=== PATIENT | female | born 1940 | race Caucasian/White ===

== ENCOUNTER → 2016-06-28 12:03 | Outpatient (CLI) | payer MEDICARE, OTHER ==
[2014-11-05 08:08] VITALS: BMI 23.5
[~2016-06-28 12:03] MED LIST: CELEXA20 MG PO; CRESTOR5 MG PO; DESYREL50 MG PO; FLUTICASONE PRO16 GM NASAL; HYDROCODONE-APA1 TA3 PO; HYDROCODONE-APA1 TAB PO; LIPITOR20 MG PO; LOPRESSOR50 MG PO; MIRAPEX0.25 MG PO; MOVANTIK PO; PEPCID20 MG PO; PLAVIX75 MG PO; SYMBICORT 16010.2 GM; SYMBICORT 16010.2 GM INH; SYNTHROID75 MCG PO; ULTRAM50 MG PO; XANAX1 MG PO
== END | disposition home or self-care (01) ==
LOC: D.RT 05-06 11:00 → D.LAB 05-06 12:00 → D.RAD 05-06 13:00 → D.RT 12:03
DX: J44.9 Chronic obstructive pulmonary disease, unspecified (principal)

== ENCOUNTER → 2016-10-21 14:58 | Outpatient (CLI) | payer MEDICARE, OTHER ==
[2014-11-05 08:08] VITALS: BMI 23.5
== END | disposition home or self-care (01) ==
LOC: D.US 14:30
DX: I65.23 Occlusion and stenosis of bilateral carotid arteries (principal)

== ENCOUNTER 2016-11-25 07:39 | Inpatient (IN) | payer MEDICARE, OTHER ==
[2016-11-25] VITALS (16 sets, daily range): BP systolic 101–161; BP diastolic 50–80; BMI 22.3
--- NOTE | ~2016-11-25 | HEMODYNAMI ---
PATIENT:PHANI TOLEDO MEDICAL RECORD: [id number] : 44 [id number] ADMISSION DATE: 11/25/16 Generatedon:11/25/201612:58 Patient name: PHANI TOLEDO Patient #: [id number] SSN: : Date of study: 11/25/2016 Page: Of Hemodynamic Procedure Report Patient Data Patient Demographics Procedure consent was obtained First Name: PHANI Gender: Female Last Name: TRE : 1940 [facility] Initial: CHACHA Age: 76 year(s) Patient #: [id number] Race: Unknown Additional ID: [id number] Contact details [address]: [address] [place] [address] State: [place] City: [place] Zip code: [address] Past Medical History Allergies Allergen Reaction Date Comments Reported Codeine 11/25/2016 Penicillins 11/25/2016 Admission Admission Data Admission Date: 11/25/2016 Admission Time: 7:39 Room #: [facility] Weight (lbs.): 130 Weight (kg.): 58.97 Procedure Procedure Types Cath Procedure Peripheral Cath Diagnostic Procedure Cath Peripheral Procedure Description Procedure Date Procedure Date: 11/25/2016 Procedure Start Time: 10:53 Procedure Staff Name Function Mechelle Hinton RT Skating Rink Ice Maker Mechelle Hinton RT Monitor Miguel Ángel Warner RT Scrub Dain Caballero MD Performing Physician Schuyler Minor MD Performing Physician Leandra Weaver RN Nurse Procedure Data Cath Procedure Fluoroscopy Diagnostic fluoroscopy Total fluoroscopy Time: time: 29.9 min 29.9 min Diagnostic fluoroscopy Total fluoroscopy dose: 411 dose: 411 mGy mGy Contrast Material Contrast Material Type Amount (ml) Isovue 300 155 Entry Location Entry Primary Successful Side Size Upsize Upsize Entry Closure Succes sful Closure Location (Fr) 1 (Fr) 2 (Fr) Remarks Device Remarks Femoral Right 5 Fr artery Diagnostic catheters Device Type Used For End Catheter Placement Merit Impress Tejeda 5Fr 125CM catheter Merit ULTRA BOLUS FLUSH 5Fr 90CM catheter Cook HN5 5F/100CM catheter Procedure Medications Medication Administration Route Dosage Versed I.V. 0.5 mg Fentanyl I.V. 25 mcg Versed I.V. 0.5 mg Fentanyl I.V. 25 mcg Heparin Bolus 2000 Heparin Bolus 1000 Versed I.V. 0.5 mg Fentanyl I.V. 25 mcg Heparin Flush Bag added to field 4 (1000units/500ml NS) Lidocaine 1% added to field 20 Oxygen NC 4 l/min Hemodynamics Rest Pre Cath Intra NCS Post Cath Vital Signs Time Heart Resp SPO2 etCO2 NIBP (mmHg) Rhythm Pain Sedation Rate (ipm) (%) (mmHg) Status Level (bpm) 10:37:56 65 26 0 129/86(104) NSR 0 (11) 10(A) , No pain 10:42:02 67 15 61 0 111/88(103) NSR 0 (11) 10(A) , No pain 10:45:59 69 6 89 34 125/90(107) NSR 0 (11) 10(A) , No pain 10:49:59 70 23 12.8 143/96(120) NSR 0 (11) 10(A) , No pain 10:54:06 67 24 27.9 129/89(109) NSR 0 (11) 10(A) , No pain 10:58:14 64 22 100 1.5 125/76(108) NSR 0 (11) 10(A) , No pain 11:02:20 66 17 88 30.2 108/79(88) NSR 0 (11) 10(A) , No pain 11:06:18 65 10 97 30.9 106/80(99) NSR 0 (11) 10(A) , No pain 11:10:17 63 10 94 32.4 110/74(85) NSR 0 (11) 10(A) , No pain 11:14:19 65 10 96 34 108/78(93) NSR 0 (11) 10(A) , No pain 11:18:19 67 10 95 19.6 107/80(93) NSR 0 (11) 10(A) , No pain 11:22:20 64 12 95 0 108/72(91) NSR 0 (11) 10(A) , No pain 11:26:18 65 16 93 11.3 114/81(95) NSR 0 (11) 10(A) , No pain 11:30:22 65 16 93 34 105/73(87) NSR 0 (11) 10(A) , No pain 11:34:21 66 15 96 15.8 107/75(90) NSR 0 (11) 10(A) , No pain 11:38:21 65 13 98 21.1 114/78(102) NSR 0 (11) 10(A) , No pain 11:42:23 68 17 96 30.2 114/77(90) NSR 0 (11) 10(A) , No pain 11:46:26 65 18 96 12.8 109/73(94) NSR 0 (11) 10(A) , No pain 11:50:26 65 15 98 36.2 109/78(96) NSR 0 (11) 10(A) , No pain 11:54:30 61 14 100 29.4 115/70(86) NSR 0 (11) 10(A) , No pain 11:58:33 64 12 98 0 124/72(96) NSR 0 (11) 10(A) , No pain 12:02:43 60 12 88 29.4 100/68(84) NSR 0 (11) 10(A) , No pain 12:06:43 61 14 95 31.7 101/69(84) NSR 0 (11) 10(A) , No pain 12:10:39 63 14 93 34 98/73(90) NSR 0 (11) 10(A) , No pain 12:14:36 63 19 88 32.4 103/72(85) NSR 0 (11) 10(A) , No pain 12:18:34 62 17 92 32.4 114/82(95) NSR 0 (11) 10(A) , No pain 12:22:37 61 17 89 30.9 121/75(87) NSR 0 (11) 10(A) , No pain 12:26:45 61 13 87 31.7 100/69(83) NSR 0 (11) 10(A) , No pain 12:31:34 61 14 84 34.7 113/75(90) NSR 0 (11) 10(A) , No pain 12:35:36 60 11 87 23.4 119/80(101) NSR 0 (11) 10(A) , No pain 12:39:42 61 16 97 34.7 116/73(88) NSR 0 (11) 10(A) , No pain 12:43:45 62 18 94 13.6 110/74(99) NSR 0 (11) 10(A) , No pain 12:47:43 109 18 96 22.6 108/88(104) NSR 0 (11) 10(A) , No pain Medications Time Medication Route Dose Verified Delivered Reason Notes Effe ctiveness by by 10:20:19 Oxygen NC 4 Leandra Leandra used for l/min Owen Weaver internet security specialist RN 10:20:30 Heparin Flush added 4 Leandra Schuyler used for Bag to BAGS Owen Minor MD procedure (1000units/500ml field RN NS) 10:20:56 Lidocaine 1% added 20ml Leandra Schuyler for local to vial Owen Minor MD anesthetic field RN 10:56:58 Versed I.V. 0.5 Schuyler Mobley for mg Owen Minor RN sedation 10:57:12 Fentanyl I.V. 25 Schuyler Mobley for mcg Owen Minor RN sedation 11:03:06 Versed I.V. 0.5 Schuyler Mobley for Owen Tubbs RN sedation 11:03:14 Fentanyl I.V. 25 Schuyler Mobley for mcg Owen Minor RN sedation 11:27:30 Heparin Bolus ia 2000 Mily Rizzo MD MD 11:50:57 Heparin Bolus ia 1000 Mily Rizzo MD MD 11:54:52 Versed I.V. 0.5 Schuyler Mobley for mg Owen Minor RN sedation 11:55:02 Fentanyl I.V. 25 Schuyler Mobley for mcg Owen Minor RN sedation Procedure Log Time Note 9:45:08 Patient Weight : 130 lbs 9:45:50 Use device set IR Diagnostic 9:45:53 Sterile Angiographic Pack opened to sterile field. 9:45:54 Bag Decanter opened to sterile field. 9:45:55 Acist Manifold opened to sterile field. 9:45:56 Acist Hand Control opened to sterile field. 9:45:57 Acist Syringe opened to sterile field. 9:50:50 BasixTOUCH Inflation Syringe opened to sterile field. 9:50:52 TUBING, CONTRAST INJCTN HI PRES opened to sterile field. 9:50:53 Cook MELGAR 260 guide wire opened to sterile field. 9:50:53 Terumo ANGLE 260cm glide wire opened to sterile field. 9:50:54 Cook DOC .035 guide wire opened to sterile field. 9:50:55 Terumo 5Fr Warwick Sheath opened to sterile field. 10:16:50 Time tracking: Regular hours 10:17:07 Plan of Care:Hemodynamics will remain stable., Cardiac rhythm will remain stable., Comfort level will be maintained., Respiratory function will remain adequate., Patient/ family verbilizes understanding of procedure., Procedure tolerated without complication., Recovers from procedure without complications.. 10:17:14 Patient received from Outpatients to IR Alert and oriented. Tansferred to table in Supine position. 10:17:23 Signed procedure consent form obtained from patient. 10:17:32 H&P Date Dictated: 11/25/2016 Within 30 days and on chart.. 10:17:34 Pre-procedure instructions explained to patient. 10:17:36 Pre-op teaching completed and patient verbalized understanding. 10:17:39 Family in waiting room. 10:17:50 Patient allergic to Codeine 10:18:39 Patient allergic to Penicillins 10:19:26 Is the patient allergic to Iodine/contrast media? No. 10:19:29 Is patient on blood thinner?Yes, asa 10:20:19 Oxygen 4 l/min NC was administered by Laendra Weaver RN; used for procedure; 10:20:30 Heparin Flush Bag (1000units/500ml NS) 4 BAGS added to field was administered by Schuyler Minor MD; used for procedure; 10:20:56 Lidocaine 1% 20ml vial added to field was administered by Schuyler Minor MD; for local anesthetic; 10:21:11 ACC The patient was administered the following blood thiners within the last 24 hours: ACCAspirin 10:21:15 ACC The patient was administered the following blood thiners within the last 24 hours: ACCPlavix 10:21:17 Patient diabetic? No. 10:21:22 ----Pre-sedation anethsthesia assessment.---- 10::22 - 10:21:26 Previous problem with sedation/anesthesia? No ? 10:21:30 Snore? No 10::34 Sleep apnea? No 10::36 Deviated septum? No 10::39 Opens mouth fully? Yes 10:21:40 Sticks out tongue? Yes 10:22:15 Airway obstruction? No patient has htn and cad 10:22:22 Dentures? Yes secured 10::31 Pre procedure: right dorsailis pedis pulse Doppler 10::41 Pre procedure: left dorsailis pedis pulse Doppler 10:22:46 Pre procedure: right posterior tibial pulse Doppler 10::50 Pre procedure: left posterior tibial pulse 0-Absent 10:23:17 IV patent on arrival in right hand with 0.9% NaCl at [facility]. 10:23:26 Right groin area was prepped with chlora-prep and draped in sterile fashion 10:23:30 - 10:23:32 Alarms reviewed by Shanti Mcclain 10:23:33 Sharps counted by scrub and verified by Cornelia 10:23:35 - 10:36:50 Vital chart was started 10:47:11 [place] LEIGH 6FR. 90cm guide sheath opened to sterile field. 10:47:14 A Merit Impress Tejeda 5Fr 125CM catheter was advanced over the wire and used for . 10:47:18 - 10:51:13 Physician arrived 10:53:21 --------ALL STOP TIME OUT------ 10:53:22 Final Timeout: patient, procedure, and site verified with staff and physician. All members of the team are in agreement. 10:53:36 Sedation plan: IV Moderate Sedation Versed, Fentanyl 10:53:43 Full Disclosure recording started 10:53:43 Procedure started. 10:53:49 Local anesthetic to right femoral artery with Lidocaine 1% by Schuyler Minor MD.INITIAL ACCESS ONLY 10:55:30 Micropuncture VSI 4FR kit opened to sterile field. 10:56:58 Versed 0.5 mg I.V. was administered by Leandra Weaver RN; for sedation; 10:57:12 Fentanyl 25 mcg I.V. was administered by Leandra Weaver RN; for sedation ; 10:58:15 Smarty Ring Choice PT Extra Support J 300cm .014 gu opened to sterile field. 10:59:11 Arterial access obtained using ultrasound guidance. 10:59:24 A 5 Fr sheath was inserted into the Right Femoral artery 11:02:58 Terumo 5FR ANGLED 65CM glide catheter opened to sterile field. 11:03:06 Versed 0.5 mg I.V. was administered by Leandra Weaver RN; for sedation; 11:03:14 Fentanyl 25 mcg I.V. was administered by Leandra Weaver RN; for sedation ; 11:03:19 A [employer]in [employer] ULTRA BOLUS FLUSH 5Fr 90CM catheter was advanced over the wire and used for . 11:06:42 Angiography was performed. 11:07:56 A cottonTracks HN5 5F/100CM catheter was advanced over the wire and used for . 11:09:41 TerumEnvie de Fraises TORQUE DEVICE PLASTIC .038 opened to sterile field. 11:13:[address] 260 .035 glide wire opened to sterile field. 11:16:49 Terumo 5FR ANGLED 100CM glide catheter opened to sterile field. 11:27:30 Heparin Bolus 2000 ia was administered by Schuyler Minor MD; ; 11:28:17 [place] Sci AMPLATZ 260CM SHORT TAPER guide wire opened to sterile field . 11:36:44 Terumo Super Stiff Angled 260cm glide wire opened to sterile field. 11:50:57 Heparin Bolus 1000 ia was administered by Schuyler Minor MD; ; 11:54:44 SPIDER EMBOLIC PROTECTION DEVICE 5MM opened to sterile field. 11:54:52 Versed 0.5 mg I.V. was administered by Leandra Weaver RN; for sedation; 11:55:02 Fentanyl 25 mcg I.V. was administered by Leandra Weaver RN; for sedation ; 11:56:14 Inflation number: 1 A Chao VIATRAC 4 x 2 x 135 balloon was prepped an d advanced across the Undefined1, then inflated to 10 HUBERT for 0:08 (min:sec). 12:11:21 PROTEGE RX TAPERED 7MM X 30MM X 135CM stent was deployed across Undefined1 . 12:13:03 Inflation number: 2 A Chao VIATRAC 6 x 2 x 135 balloon was prepped an d advanced across the Undefined1, then inflated to 8 HUBERT for 0:06 (min:sec). 12:19:19 [place] Clyde 6Fr sheath opened to sterile field. 12:19:40 Cordis 6Fr Exoseal opened to sterile field. 12:25:20 Procedure ended.(Physican Out) 12:34:46 Fluoroscopy time 29.90 minutes. 12:34:57 Fluoroscopy dose: 411 mGy 12:34:57 Flurop Dose total: 411 12:35:04 Contrast amount:Isovue 300 155ml. 12:35:06 Sharps counted by scrub and verified by R.N. 12:35:07 Procedure and supply charges have been captured, reviewed, submitted an d are correct. 12:48:21 Vital chart was stopped 12:48:25 Full Disclosure recording stopped Intervention Summary Intervention Notes Time ActionType Lesion and Equipment Action# Pressure Duration Attributes Used 11:56:14 Inflate Undefined1 Chao 1 10 00:08 balloon VIATRAC 4 x 2 x 135 balloon 12:11:21 Deploy self Undefined1 PROTEGE 1 expanding RX stent TAPERED 7MM X 30MM X 135CM stent 12:13:03 Inflate Undefined1 Chao 2 8 00:06 balloon VIATRAC 6 x 2 x 135 balloon Device Usage Item Name Manufacture Quantity Catalog Number Hospital Part Current M inimal Lot# / Charge Number Stock Stock Serial# Code Mono Kamara [id number] 5 Angiographic Health Pack Bag Decanter Microtek 1 2002S [id number] 29685 686029 5 Medical Inc. Acist Acist 1 48923 491305 911054 706937 5 Manifold Medical Systems Inc Acist Hand Acist 1 23260 348722 127447 930695 5 Control Medical Systems Inc Acist Syringe Acist 1 89822 731108 321620 817342 2 0 Medical Systems Anytime DD BasixTOUCH Merit 1 [id number] 393884 225533 376102 5 Inflation Medical Syringe TUBING, Merit 1 [id number] 702389 827421 953758 5 CONTRAST Medical INJCTN HI PRES Terumo ANGLE Terumo 1 [id number] 752742 050718 836805 5 260cm glide wire [facility] 1 K58330 413860 947589 5 [id number] 260 guide wire Vernalis DOC .035 [facility] 1 A32334 352288 589496 5 3432734 guide wire Terumo 5Fr Terumo 1 AAG279 251999 634546 672008 4 0 [place] Sheath Vernalis RAABE [facility] 1 Z98005 679954 669955 5 6FR. 90cm guide sheath Merit Impress Merit 1 [id number] 770253 049021 522323 5 Tejeda 5Fr Medical 125CM catheter Micropuncture VSI VASCULAR 1 7266V 092304 155344 5 VSI 4FR kit SOLUTIONS [place] Sci [place] 1 [id number] 165613 002222 068083 5 Choice PT Scientific Extra Support J 300cm .014 gu Terumo 5FR Terumo 1 CG507 933040 814126 5 ANGLED 65CM glide catheter Merit ULTRA Merit 1 [id number] 823815 840267 5 BOLUS FLUSH Medical 5Fr 90CM catheter Cook HN5 [facility] 1 C18262 960596 570579 2 5F/100CM catheter Terumo TORQUE [place] 1 TD01 413963 010000 189615 5 DEVICE Scientific PLASTIC .038 Cook [facility] 1 G89556 652379 074432 174794 [address]ADNNER 260 .035 glide wire Terumo 5FR Terumo 1 CG508 099548 85640 361840 4 ANGLED 100CM glide catheter [place] [facility] [place] 1 [id number] 971066 179186 782180 5 AMPLATZ 260CM Scientific SHORT TAPER guide wire Terumo Super Terumo 1 NH5975 135131 416448 713653 5 Stiff Angled 260cm glide wire SPIDER Medtronic 1 [id number] 917454 698581 5 EMBOLIC PROTECTION DEVICE 5MM Chao Chao 1 2308004-78 650809 908990 860134 5 VIATRAC 4 x 2 Vascular x 135 balloon PROTEGE RX Medtronic 1 [id number] 396065 928278 737168 5 [id number] TAPERED 7MM X 30MM X 135CM stent Chao Chao 1 2395835-31 804849 809917 667825 5 VIATRAC 6 x 2 Vascular x [address] [place] [address] [facility] [place] 1 019798 910472 799557 5 [id number] sheath Cordis 6Fr Cardinal 1 EX600 774822 237773 923806 1 0 [id number] [facility] Health Signature Audit Moyers Stage Time Signature Unsigned Intra-Procedure 11/25/2016 Mechelle Hinton RT(R) 12:48:19 PM RT(R) 11/25/2016 12:57:23 PM Intra-Procedure 11/25/2016 Mechelle Hinton 12:58:41 PM RT(R) Signatures Monitor : Mechelle Hinton RT Signature : Date : Time : [facility] [address] [place] [address]
[~2016-11-25 07:39] MED LIST changes: -DESYREL50 MG PO; +TRAZODONE HCL50 MG PO
[2016-11-25] MEDS ORDERED: PROTONIX40 MG PO (08:29)
[2016-11-25] MEDS ORDERED: ASPIRIN325 MG PO (08:31)
[2016-11-25] MEDS ORDERED: SINEMET 25-1001 EACH PO (08:33)
[2016-11-25 08:52] LABS: BASOPHILS 0.8 % (0-2); EOSINOPHILS 5.3 % (0-7); HEMATOCRIT 39.7 % (36.0-48.0); HEMOGLOBIN 12.7 g/dL (12-16); LYMPHOCYTES 33.9 % (15-50); MCH 31.6 pg (26.0-34.0); MCV 98.8 fL (80.0-100.0); MEAN PLATELET VOLUME 10.2 fL (7.4-10.4); MONOCYTES 11.1 % (2-11); NEUTROPHILS 48.9 % (40-80); PLATELET COUNT 262 10x3/uL (130-400); RBC 4.02 10x6/uL (4.00-5.40); RDW 13.3 % (11.5-14.5); WBC 5.1 10x3/uL (4.8-10.8)
[2016-11-25 09:30] LABS: CALC OSMOLALITY 298 mosm/kg (275-300); CALCIUM 10.4 mg/dL (8.5-10.1); CHLORIDE - SERUM 107 mmol/L (98-107); CREATININE - SERUM 0.7 mg/dL (0.6-1.3); GLUCOSE 101 mg/dL (74-106); POTASSIUM - SERUM 3.9 mmol/L (3.5-5.1); SODIUM 146 mmol/L (136-145); UREA NITROGEN 35 mg/dL (7-18); eGFR NON AFRICAN AMERICAN 87 mL/min (90-120)
[2016-11-25 09:34] LABS: APTT 25.6 SECONDS (22.8-39.4); INR 0.97 (0.85-1.17); PROTIME 12.8 SECONDS (11.6-15.0)
--- NOTE | 2016-11-25 13:05 | NUR ---
RECEIVED PT TO ROOM CV04 VIA BED. ICU MONITORS CONNECTED. PROCEDURE NURSE CONFIRMS PT CURRENT STATE IS HER BASELINE.
--- NOTE | 2016-11-25 13:20 | NUR ---
PT INCONTINENT OF URINE. BENTLEY CARE PROVIDED AND LINENS CHANGED. CALL LIGHT WITHIN REACH.
--- NOTE | 2016-11-25 14:00 | NUR ---
ASSISTED PT WITH USE OF BEDPAN, VOIDED 400ML CLOUDY URINE. BENTLEY CARE PROVIDED AND NEW PAD PLACED UNDER PT. CALL LIGHT WITHIN REACH. PT VERBAIZES UNDERSTANDING OF NEED TO CALL NURSE FOR ASSISTANCE.
--- NOTE | 2016-11-25 15:11 | NUR ---
MARAL GARCIA RN AT BEDSIDE TO SEE PT.
--- NOTE | 2016-11-25 17:02 | NUR ---
PT INCONTINENT OF URINE. BENTLEY CARE PROVIDED AND LINENS CHANGED.
--- NOTE | 2016-11-25 17:46 | NUR ---
DR ROSARIO HERE TO SEE PT.
--- NOTE | 2016-11-25 19:05 | NUR ---
PATIENT INCONTINENT OF URNINE. WHITE PAD SATURATED. LINENS CHANGED AND PATIENT CLEANED. DENIES FURTHER NEED. WILL MONITOR.
--- NOTE | 2016-11-25 19:10 | NUR ---
SHIFT ASSESSMENT COMPLETE, SEE FLOWSHEET FOR COMPLETE DETAILS. PATIENT LAYING IN BED, DENIES COMPLAINT. A&O X4, RR EVEN AND NON LABORED. S1S2, NSR ON MONITOR. INCISION ON R GROIN, SITE C/D/I, NO S/S OF BLEEDING. PERIPHERAL PULSES +2. VSS, WILL MONITOR.
--- NOTE | 2016-11-25 20:50 | NUR ---
NIGHT MEDS GIVEN. PLACED ON BED THOMAS. 300CC OF CLEAR YELLOW URINE.
--- NOTE | 2016-11-25 23:00 | NUR ---
REASSESSMENT COMPLETE, SEE FLOWSHEET. VSS, NO CHAGGUILLERMO.
[2016-11-26] VITALS (8 sets, daily range): BP systolic 111–137; BP diastolic 50–71
--- NOTE | 2016-11-26 01:00 | NUR ---
PATIENT RESTING WELL. A&O, VSS, DENIES NEED.
--- NOTE | 2016-11-26 03:00 | NUR ---
REASSESSMENT COMPLETE. SEE FLOWSHEET. NO CHANGES, VSS.
--- NOTE | 2016-11-26 03:30 | NUR ---
PATIENT REQUESTS PRN TYLENOL FOR HEADACHE, TYLENOL PROVIDED.
--- NOTE | 2016-11-26 04:00 | NUR ---
CALLED FOR UPDATE ON PATIENT, UPDATE PROVIDED.
--- NOTE | 2016-11-26 05:30 | NUR ---
RESTING WELL, DENIES NEED AT THIS TIME.
--- NOTE | 2016-11-26 09:25 | NUR ---
DC INSTRUCTIONS REVIEWED WITH PT AND SIGNIFICANT OTHER. IV DC'D CATH FULLY INTACT. PT REMINDED THAT AM MEDICATIONS GIVEN. REVIEWED GIVEN MEDS WITH S.O. ALL QUESTIONS ANSWERED AT THIS TIME. PT INFORMED OF NEED FOR FOLLOW UP APPOINTMENT IN 4 WEEKS AND INSTRUCTED IF OFFICE HAS NOT CALLED BY TUESDAY TO CALL TO SCHEDULE APPOINTMENT. GROIN SITE CLEAN DRY INTACT NO S/SX OF HEMATOMA OR BLEEDING NOTED.
--- NOTE | 2016-11-26 09:45 | NUR ---
PT DC'D HOME.
== END 2016-11-26 09:45 | disposition home or self-care (01) | DRG 36 ==
LOC: D.SDCHOLD 07:39 → D.CVICU 07:39 → D.SDCHOLD 10:00 → D.CVICU 13:06
PROVIDERS: ADMIT General Practice
PROC: 037J3DZ Dilation of Left Common Carotid Artery with Intraluminal Device, Percutaneous Approach (ICD-10-PCS; principal; 2016-11-25 10:00)
DX: I65.22 Occlusion and stenosis of left carotid artery (principal)

== ENCOUNTER 2017-02-06 16:55 | Emergency (ER) | payer MEDICARE, OTHER ==
[2016-11-25 13:38] VITALS: BMI 22.3
[~2017-02-06 16:55] MED LIST changes: +ASPIRIN325 MG PO; +PROTONIX40 MG PO; +SINEMET 25-1001 EACH PO
[2017-02-06 18:50] LABS: BASOPHILS 0.3 % (0-2); HEMATOCRIT 30.8 % (36.0-48.0); HEMOGLOBIN 9.7 g/dL (12-16); IMMATURE GRANULOCYTES 0.3 % (0-5); LYMPHOCYTES 13.7 % (15-50); MCH 30.9 pg (26.0-34.0); MCHC 31.5 g/dL (31.0-37.0); MCV 98.1 fL (80.0-100.0); MEAN PLATELET VOLUME 9.3 fL (7.4-10.4); MONOCYTES 7.4 % (2-11); NEUTROPHILS 77.3 % (40-80); RBC 3.14 10x6/uL (4.00-5.40); RDW 14.4 % (11.5-14.5); WBC 7.8 10x3/uL (4.8-10.8)
[2017-02-06 18:55] LABS: PLATELET COUNT 385 10x3/uL (130-400)
[2017-02-06 19:11] LABS: ALBUMIN 3.5 g/dL (3.4-5.0); ALKALINE PHOSPHATASE 85 U/L (46-116); ALT (SGPT) 6 U/L (10-68); CALC OSMOLALITY 281 mosm/kg (275-300); CALCIUM 10.2 mg/dL (8.5-10.1); CARBON DIOXIDE 29.4 mmol/L (21.0-32.0); CHLORIDE - SERUM 105 mmol/L (98-107); CREATININE - SERUM 0.6 mg/dL (0.6-1.3); GLUCOSE 116 mg/dL (74-106); POTASSIUM - SERUM 3.7 mmol/L (3.5-5.1); PROTEIN - SERUM 6.6 g/dL (6.4-8.2); SODIUM 140 mmol/L (136-145); UREA NITROGEN 19 mg/dL (7-18); eGFR NON AFRICAN AMERICAN > 90 mL/min (90-120)
[2017-02-06 20:13] LABS: APPEARANCE CLEAR (CLEAR); COLOR YELLOW (YELLOW)
[2017-02-06 20:14] LABS: BILIRUBIN NEGATIVE (NEGATIVE); GLUCOSE NEGATIVE (NEGATIVE); KETONE NEGATIVE (NEGATIVE); NITRITE POSITIVE (NEGATIVE); PROTEIN NEGATIVE (NEGATIVE); UROBILINOGEN NORMAL (NORMAL)
[2017-02-06 20:17] LABS: BACTERIA MANY /hpf (NONE SEEN); EPITHELIAL CELLS 0-5 /hpf (0-5); WHITE CELLS - URINE 25-50 /hpf (0-5)
== END 2017-02-06 21:50 | disposition home or self-care (01) ==
LOC: D.ER 16:55
PROVIDERS: Emergency Medicine; Family Medicine
DX: G20 Parkinson's disease (principal); R53.1 Weakness; S70.02XA Contusion of left hip, initial encounter; S70.01XA Contusion of right hip, initial encounter; W19.XXXA Unspecified fall, initial encounter; Y93.89 Activity, other specified; Y92.019 Unspecified place in single-family (private) house as the place of occurrence of the external cause; S09.90XA Unspecified injury of head, initial encounter; I10 Essential (primary) hypertension

== ENCOUNTER → 2017-02-11 12:52 | Outpatient (CLI) | payer MEDICARE, OTHER ==
[2016-11-25 13:38] VITALS: BMI 22.3
[~2017-02-11 12:52] MED LIST changes: +OXYCONTIN10 MG PO; +TEMAZEPAM30 MG PO
== END | disposition home or self-care (01) ==
LOC: D.US 12:52
DX: I65.22 Occlusion and stenosis of left carotid artery (principal); R22.32 Localized swelling, mass and lump, left upper limb; I77.1 Stricture of artery

== ENCOUNTER 2017-03-10 07:23 | Outpatient (CLI) | payer MEDICARE, OTHER ==
[~2017-03-10 07:23] MED LIST changes: -OXYCONTIN10 MG PO; -TEMAZEPAM30 MG PO
[2017-03-10 08:22] LABS: BASOPHILS 0.4 % (0-2); EOSINOPHILS 3.6 % (0-7); HEMATOCRIT 37.1 % (36.0-48.0); HEMOGLOBIN 11.8 g/dL (12-16); IMMATURE GRANULOCYTES 0.2 % (0-5); LYMPHOCYTES 31.2 % (15-50); MCH 30.4 pg (26.0-34.0); MCHC 31.8 g/dL (31.0-37.0); MCV 95.6 fL (80.0-100.0); MEAN PLATELET VOLUME 10.2 fL (7.4-10.4); MONOCYTES 10.2 % (2-11); NEUTROPHILS 54.4 % (40-80); RBC 3.88 10x6/uL (4.00-5.40); RDW 13.9 % (11.5-14.5); WBC 4.5 10x3/uL (4.8-10.8)
[2017-03-10 08:23] LABS: PLATELET COUNT 224 10x3/uL (130-400)
[2017-03-10 08:32] LABS: APTT 27.7 SECONDS (22.8-39.4); INR 1.14 (0.85-1.17); PROTIME 14.2 SECONDS (11.6-15.0)
[2017-03-10 08:45] LABS: CALC OSMOLALITY 288 mosm/kg (275-300); CALCIUM 9.4 mg/dL (8.5-10.1); CARBON DIOXIDE 28.3 mmol/L (21.0-32.0); CHLORIDE - SERUM 109 mmol/L (98-107); CREATININE - SERUM 0.7 mg/dL (0.6-1.3); GLUCOSE 98 mg/dL (74-106); POTASSIUM - SERUM 3.7 mmol/L (3.5-5.1); SODIUM 143 mmol/L (136-145); UREA NITROGEN 25 mg/dL (7-18); eGFR NON AFRICAN AMERICAN 87 mL/min (90-120)
[2017-03-10] MEDS ORDERED: TEMAZEPAM30 MG PO (08:52)
[2017-03-10] MEDS ORDERED: OXYCONTIN10 MG PO (08:52)
[2017-03-10 08:57] VITALS: BP 119/71; BMI 22.3
[2017-03-10 17:46] VITALS: BP 120/64; BMI 22.3
[2017-03-10 20:00] VITALS: BP 108/51
[2017-03-11] VITALS: BP 141/57
[2017-03-11 04:00] VITALS: BP 130/58
[2017-03-11 06:37] LABS: BASOPHILS 0.3 % (0-2); EOSINOPHILS 1.3 % (0-7); HEMATOCRIT 31.8 % (36.0-48.0); HEMOGLOBIN 9.9 g/dL (12-16); IMMATURE GRANULOCYTES 0.3 % (0-5); LYMPHOCYTES 25.9 % (15-50); MCH 30.1 pg (26.0-34.0); MCHC 31.1 g/dL (31.0-37.0); MCV 96.7 fL (80.0-100.0); MONOCYTES 11.3 % (2-11); NEUTROPHILS 60.9 % (40-80); PLATELET COUNT 231 10x3/uL (130-400); RBC 3.29 10x6/uL (4.00-5.40); RDW 13.9 % (11.5-14.5)
[2017-03-11 06:39] LABS: WBC 7.2 10x3/uL (4.8-10.8)
[2017-03-11 06:45] LABS: ANION GAP 9.9 mmol/L (8-16); CALCIUM 9.2 mg/dL (8.5-10.1); CARBON DIOXIDE 27.8 mmol/L (21.0-32.0); CREATININE - SERUM 0.8 mg/dL (0.6-1.3); POTASSIUM - SERUM 3.7 mmol/L (3.5-5.1)
[2017-03-11 06:51] LABS: INR 1.15 (0.85-1.17); PROTIME 14.3 SECONDS (11.6-15.0)
[2017-03-11 07:48] VITALS: BP 110/81
[2017-03-11 10:52] VITALS: BP 108/76
[2017-03-11 11:01] VITALS: BMI 22.3
== END 2017-03-11 16:30 | disposition home or self-care (01) ==
LOC: D.M2 07:23 → D.OPS 07:23 → D.RAD 09:00 → D.OPS 09:00 → D.M2 17:38 → D.OPS 03-11 16:30
PROVIDERS: General Practice
DX: I70.218 Atherosclerosis of native arteries of extremities with intermittent claudication, other extremity (principal); Z01.812 Encounter for preprocedural laboratory examination

== ENCOUNTER → 2017-03-17 12:25 | Outpatient (CLI) | payer MEDICARE, OTHER ==
[2017-03-11 11:01] VITALS: BMI 22.3
[~2017-03-17 12:25] MED LIST changes: +OXYCONTIN10 MG PO; +TEMAZEPAM30 MG PO
== END | disposition home or self-care (01) ==
LOC: D.US 12:25
DX: I65.23 Occlusion and stenosis of bilateral carotid arteries (principal)

== ENCOUNTER → 2017-04-11 15:21 | Outpatient (CLI) | payer MEDICARE, OTHER | END | disposition home or self-care (01) | LOC: D.US 15:21 | DX: I77.1 Stricture of artery (principal) ==

== ENCOUNTER 2017-12-06 06:30 | Emergency (ER) | payer MEDICARE ==
[~2017-12-06] VITALS: Ht 162.6 cm; Wt 56.4 kg
[2017-12-06 06:40] VITALS: Ht 162.6 cm; Wt 56.4 kg
[2017-12-06] MEDS ORDERED: PLAVIX75 MG PO (06:41)
[2017-12-06] MEDS ORDERED: NORCO 10-325 TA1 TAB PO (06:42)
[2017-12-06] MEDS ORDERED: FAMOTIDINE10 MG PO (09:03)
[2017-12-06] MEDS ORDERED: DESERYL50 M2 PO (09:04)
[2017-12-06] MEDS ORDERED: METOPROLOL TART25 MG PO (09:05)
[2017-12-06] MEDS ORDERED: BENZONATATE200 MG PO (09:06)
[2017-12-06] MEDS ORDERED: MUCINEX DM ER1 EAC1 PO (09:07)
[2017-12-06] MEDS ORDERED: ATROVENT HFA12.9 GM INH (09:07)
[2017-12-06 09:11] LABS: BASOPHILS 0.3 % (0-2); EOSINOPHILS 2.1 % (0-7); HEMATOCRIT 32.3 % (36.0-48.0); HEMOGLOBIN 9.7 g/dL (12-16); IMMATURE GRANULOCYTES 0.1 % (0-5); LYMPHOCYTES 17.9 % (15-50); MCH 24.4 pg (26.0-34.0); MCV 81.4 fL (80.0-100.0); MEAN PLATELET VOLUME 10.3 fL (7.4-10.4); MONOCYTES 9.4 % (2-11); NEUTROPHILS 70.2 % (40-80); RBC 3.97 10x6/uL (4.00-5.40); RDW 16.4 % (11.5-14.5)
[2017-12-06 09:13] LABS: PLATELET COUNT 355 10x3/uL (130-400)
[2017-12-06 09:28] LABS: INR 1.02 (0.85-1.17)
[2017-12-06 09:30] LABS: ALBUMIN 3.9 g/dL (3.4-5.0); ALKALINE PHOSPHATASE 43 U/L (46-116); ALT (SGPT) 12 U/L (10-68); BILIRUBIN - TOTAL 0.67 mg/dL (0.2-1.3); CALC OSMOLALITY 280 mosm/kg (275-300); CARBON DIOXIDE 26.7 mmol/L (21.0-32.0); CHLORIDE - SERUM 104 mmol/L (98-107); CREATININE - SERUM 0.6 mg/dL (0.6-1.3); GLUCOSE 100 mg/dL (74-106); PROTEIN - SERUM 6.7 g/dL (6.4-8.2); SODIUM 139 mmol/L (136-145); UREA NITROGEN 22 mg/dL (7-18); eGFR NON AFRICAN AMERICAN > 90 mL/min (90-120)
[2017-12-06 09:31] LABS: POTASSIUM - SERUM 4.4 mmol/L (3.5-5.1)
[2017-12-06 11:43] VITALS: BP 125/59
== END 2017-12-06 12:12 | disposition short-term general hospital (02) ==
LOC: D.ER 06:30
PROVIDERS: Family Medicine
DX: S02.82XA Fracture of other specified skull and facial bones, left side, initial encounter for closed fracture (principal); S02.40DA Maxillary fracture, left side, initial encounter for closed fracture; S02.40FA Zygomatic fracture, left side, initial encounter for closed fracture; W18.30XA Fall on same level, unspecified, initial encounter; Y93.89 Activity, other specified; Y92.019 Unspecified place in single-family (private) house as the place of occurrence of the external cause; D64.9 Anemia, unspecified; I25.10 Atherosclerotic heart disease of native coronary artery without angina pectoris; E87.5 Hyperkalemia; I10 Essential (primary) hypertension; J44.9 Chronic obstructive pulmonary disease, unspecified

== ENCOUNTER → 2018-01-17 14:10 | Outpatient (CLI) | payer MEDICARE, OTHER ==
[2017-12-06 06:40] VITALS: BMI 21.3
[~2018-01-17 14:10] MED LIST changes: +ATROVENT HFA12.9 GM INH; +BENZONATATE200 MG PO; +DESERYL50 M2 PO; +FAMOTIDINE10 MG PO; +METOPROLOL TART25 MG PO; +MUCINEX DM ER1 EAC1 PO; +NORCO 10-325 TA1 TAB PO
== END | disposition home or self-care (01) ==
LOC: D.US 01-16 14:00
DX: I65.23 Occlusion and stenosis of bilateral carotid arteries (principal)

== ENCOUNTER → 2018-02-28 08:33 | Outpatient (CLI) | payer MEDICARE, OTHER ==
[2017-12-06 06:40] VITALS: BMI 21.3
== END | disposition home or self-care (01) ==
LOC: D.US 08:30
DX: I65.23 Occlusion and stenosis of bilateral carotid arteries (principal)

== ENCOUNTER 2018-10-21 09:57 | Emergency (ER) | payer MEDICARE ==
[~2018-10-21] VITALS: Ht 162.6 cm; Wt 56.8 kg
[2018-10-21 10:01] VITALS: Ht 162.6 cm; Wt 56.8 kg
[2018-10-21] MEDS ORDERED: LOPRESSOR25 MG PO (10:05)
[2018-10-21] MEDS ORDERED: PROTONIX40 MG PO (10:08)
[2018-10-21] MEDS ORDERED: VITAMIN B-121000 MCG PO (10:09)
[2018-10-21] MEDS ORDERED: FERROUS SULFAT325 MG PO (10:10)
[2018-10-21] MEDS ORDERED: CYCLOBENZAPRINE10 MG PO (10:10)
[2018-10-21 10:44] LABS: BASOPHILS 0.6 % (0-2); HEMATOCRIT 41.3 % (36.0-48.0); HEMOGLOBIN 13.8 g/dL (12-16); IMMATURE GRANULOCYTES 0.1 % (0-5); LYMPHOCYTES 22.8 % (15-50); MCH 33.1 pg (26.0-34.0); MCHC 33.4 g/dL (31.0-37.0); MONOCYTES 8.2 % (2-11); NEUTROPHILS 67.3 % (40-80); RBC 4.17 10x6/uL (4.00-5.40); RDW 13.2 % (11.5-14.5)
[2018-10-21 10:47] LABS: PLATELET COUNT 262 10x3/uL (130-400)
[2018-10-21 10:57] LABS: APTT 27.5 SECONDS (22.8-39.4); INR 1.09 (0.85-1.17); PROTIME 13.6 SECONDS (11.6-15.0)
[2018-10-21 10:58] LABS: ALKALINE PHOSPHATASE 68 U/L (46-116); ALT (SGPT) 14 U/L (10-68); CALC OSMOLALITY 285 mosm/kg (275-300); CALCIUM 10.3 mg/dL (8.5-10.1); CARBON DIOXIDE 31.6 mmol/L (21.0-32.0); CHLORIDE - SERUM 104 mmol/L (98-107); CREATININE - SERUM 0.7 mg/dL (0.6-1.3); GLUCOSE 133 mg/dL (74-106); POTASSIUM - SERUM 3.4 mmol/L (3.5-5.1); SODIUM 142 mmol/L (136-145); THYROID STIMULATING HORMONE 1.56 uIU/mL (0.36-3.74); UREA NITROGEN 16 mg/dL (7-18); eGFR NON AFRICAN AMERICAN 86 mL/min (90-120)
[2018-10-21 11:28] LABS: APPEARANCE CLEAR (CLEAR); COLOR YELLOW (YELLOW)
[2018-10-21 11:29] LABS: BILIRUBIN NEGATIVE (NEGATIVE); GLUCOSE NEGATIVE (NEGATIVE); KETONE NEGATIVE (NEGATIVE); NITRITE NEGATIVE (NEGATIVE); PROTEIN NEGATIVE (NEGATIVE); UROBILINOGEN NORMAL (NORMAL)
[2018-10-21 11:42] VITALS: BP 172/89
== END 2018-10-21 12:27 | disposition home or self-care (01) ==
LOC: D.ER 09:57
PROVIDERS: Emergency Medicine
DX: Z00.00 Encounter for general adult medical examination without abnormal findings (principal); I10 Essential (primary) hypertension

== ENCOUNTER → 2019-03-29 09:48 | Outpatient (CLI) | payer MEDICARE ==
[2018-10-21 10:01] VITALS: BMI 21.5
[~2019-03-29 09:48] MED LIST changes: +CYCLOBENZAPRINE10 MG PO; +FERROUS SULFAT325 MG PO; +LOPRESSOR25 MG PO; +VITAMIN B-121000 MCG PO
== END | disposition home or self-care (01) ==
LOC: D.US 09:00
PROVIDERS: ATTEND Internal Medicine Cardiovascular Disease
DX: I65.23 Occlusion and stenosis of bilateral carotid arteries (principal)

== ENCOUNTER 2019-10-08 22:17 | Emergency (ER) | payer MEDICARE ==
[~2019-10-08] VITALS: Ht 162.6 cm; Wt 59.1 kg
[2019-10-08 22:26] VITALS: Ht 162.6 cm; Wt 59.1 kg
[2019-10-08 23:53] VITALS: BP 145/84
== END 2019-10-08 23:53 ==
LOC: D.ER 22:17
DX: S09.90XA Unspecified injury of head, initial encounter (principal); W01.0XXA Fall on same level from slipping, tripping and stumbling without subsequent striking against object, initial encounter; I10 Essential (primary) hypertension; Z95.5 Presence of coronary angioplasty implant and graft; Z95.1 Presence of aortocoronary bypass graft; J44.9 Chronic obstructive pulmonary disease, unspecified